=== PATIENT | male | born 1980 | race Caucasian/White ===

== ENCOUNTER 2020-02-28 19:00 | Emergency (ER) | payer SELFPAY ==
[2020-02-28 19:17] VITALS: BP 129/89
[2020-02-28] MEDS ORDERED: DIPH/PERTUSS(ACELL)/TETANUS VAC/PF 0.5 ML SYR (>=10YO) IM ONE (19:49)
[2020-02-28] MEDS ORDERED: HYDROCODONE/ACETAMINOPHEN 5-325 MG TABLET PO ONE (19:49)
[2020-02-28] MEDS ORDERED: CIPROFLOXACIN HCL 500 MG TABLET PO ONE (19:49)
--- NOTE | 2020-02-28 19:53 | ER Document Report ---
HPI - HPI Patient complains to provider of: Puncture wound Time Seen by Provider: 02/28/20 19:46 Onset: This afternoon Onset/Duration: Sudden Quality of pain: Achy Pain Level: 4 Context: Patient states that he stepped on a nail this afternoon going through the bottom of his shoe into his foot. Patient uncertain when last tetanus immunization was. Patient complains of right foot pain. Associated Symptoms: denies: Fever, Nausea, Vomiting Exacerbated by: Walking Relieved by: Denies Similar symptoms previously: No Recently seen / treated by doctor: No - ROS ROS below otherwise negative: Yes Systems Reviewed and Negative: Yes All other systems reviewed and negative - CONSTITUTIONAL Constitutional: DENIES: Fever, Chills - GASTROINTESTINAL Gastrointestinal: DENIES: Nausea - MUSCULOSKELETAL Musculoskeletal: REPORTS: Extremity pain - DERM Skin Color: Normal Skin Problems: Puncture Wound Past Medical History - General Information source: Patient - Social History Smoking Status: Never Smoker Chew tobacco use (# tins/day): No Drug Abuse: None Lives with: Family Family History: Reviewed & Not Pertinent Patient has homicidal ideation: No - Medical History Medical History: Negative Surgical Hx: Negative - Immunizations Hx Diphtheria, Pertussis, Tetanus Vaccination: Yes Vertical Provider Document - CONSTITUTIONAL Agree With Documented VS: Yes Exam Limitations: No Limitations General Appearance: WD/WN, No Apparent Distress - INFECTION CONTROL TRAVEL OUTSIDE OF THE [place] IN LAST 30 DAYS: No - HEENT HEENT: Atraumatic, Normocephalic - NECK Neck: Normal Inspection - RESPIRATORY Respiratory: No Respiratory Distress - CARDIOVASCULAR Pulses: Normal: Dorsalis pedis - MUSCULOSKELETAL/EXTREMETIES Musculoskeletal/Extremeties: MAEW, FROM, Tender - Tenderness to plantar surface of right foot - NEURO Level of Consciousness: Awake, Alert, Appropriate Motor/Sensory: No Motor Deficit - DERM Integumentary: Warm, Dry Notes: Plantar puncture wound to right foot, no surrounding erythema Course - Re-evaluation Re-evalutation: 02/28/20 21:02 Patient without any bony abnormality noted on x-ray, no obvious foreign body no cory to puncture wound. Patient advised of worsening signs or symptoms of patient return immediately for. Patient verbalized understanding and is agreeable with discharge plan of care. - Vital Signs Vital signs: Temp Pulse Resp BP Pulse Ox 98.1 F 86 16 129/89 H 98 02/28/20 19:13 02/28/20 19:13 02/28/20 19:13 02/28/20 19:13 02/28/20 19:13 - Laboratory Results Critical Laboratory Results Reviewed: No Critical Results - Radiology Results Critical Radiology Results Reviewed: No Critical Results Discharge - Discharge Clinical Impression: Puncture wound of plantar aspect of foot Qualifiers: Encounter type: initial encounter Laterality: right Qualified Code(s): S91.331A - Puncture wound without foreign body, right foot, initial encounter Condition: Stable Disposition: HOME, SELF-CARE Instructions: Ciprofloxacin (OM), Puncture Wound (OM), Tetanus Immunization Given ([facility]) Additional Instructions: Return immediately for any new or worsening symptoms Followup with your primary care provider, call tomorrow to make a followup appointment Monitor for any signs of infection such as redness, streaks, fever, purulent drainage or any concerning new symptoms. Return for any worsening. Prescriptions: Ciprofloxacin HCl [Cipro 500 mg Tablet] 500 mg PO BID #10 tablet Hydrocodone/Acetaminophen [Hazel 5-325 mg Tablet] 1 tab PO Q6 PRN #6 tablet PRN Reason: Forms: Return to Work Referrals: [facility] [Provider Group] - Follow up as needed
--- NOTE | 2020-02-28 21:16 | RADIOLOGY REPORT (SQ) ---
EXAM DESCRIPTION: FOOT RIGHT COMPLETE 02/28/2020 7:49 PM [employer] CLINICAL HISTORY: 39 years Male, plantar PW; ; COMPARISON: None. FINDINGS: Visualized osseous structures are normal in appearance. Joint spaces are well-maintained. No acute fracture or dislocation is evident. No definite retained radiopaque foreign body. IMPRESSION: No acute osseous anomaly or retained radiopaque foreign body. However, not all foreign bodies are radiopaque.
== END 2020-02-28 21:15 | disposition home or self-care (01) ==
LOC: ER 19:00
DX: S91.331A Puncture wound without foreign body, right foot, initial encounter (principal); W45.0XXA Nail entering through skin, initial encounter; Z23 Encounter for immunization
CPT/HCPCS: 90471; 90715; 99283